=== PATIENT | female | born 1985 | race Caucasian/White ===

== ENCOUNTER 2020-08-24 15:00 | Emergency (ER) | payer OTHER ==
[~2020-08-24] VITALS: Ht 162.6 cm; Wt 59.0 kg
[2020-08-24 16:11] VITALS: BP 109/79
== END 2020-08-24 16:12 | disposition still patient (30) ==
LOC: M.ERS 15:00
DX: J02.9 Acute pharyngitis, unspecified (principal); Z20.828 Contact with and (suspected) exposure to other viral communicable diseases

== ENCOUNTER 2020-12-09 14:13 | Emergency (ER) | payer OTHER ==
[~2020-12-09] VITALS: Ht 162.6 cm; Wt 59.0 kg
[2020-12-09] MEDS ORDERED: NAPROSYN500 MG PO (15:27)
[2020-12-09] MEDS ORDERED: NORCO5 PO (15:27)
[2020-12-09 15:40] VITALS: BP 112/64
== END 2020-12-09 15:40 | disposition home or self-care (01) ==
LOC: M.ERS 14:13
DX: M25.521 Pain in right elbow (principal)